=== PATIENT | male | born 1950 | race Caucasian/White ===

== ENCOUNTER 2017-06-07 12:54 | Outpatient (RCR) | payer MEDICARE, OTHER ==
[~2017-06-07 12:54] MED LIST: ASP325 PO; ATOM80CA3 PO; AZIT-1 PO; CHOL10005 PO; CLON-303 *; CODE118S5 PO; COLC1TAB5 PO; CYAN1000 IM; DIAZ-308 PO; DONE10TA PO; DOXA8TAB11 PO; DOXY-179 PO; DULO60CA56 PO; EZE10 PO; EZET10TA41 PO; FLUO40CA70 PO; GAB300 PO; GABA-1 PO; GOLYTE PO; HYDR-3377 PO; HYDR-385 PO; HYDR1TAB PO; LOR5/325 PO; LOS50 PO; LOSA50TA72 PO; MELA10CA PO; MEMA10TA19 PO; METF-411 PO; NEBI2.5T5 PO; ORP100 PO; PRAV40TA78 PO; PREVISION PO; TADA5TAB7 PO; TAMS0.4C25 PO; TEST200V2 IM; TESTOSTERONE; TIZ4 PO; TRAZ150T61 PO; TRIA15OI20 TP; VEN75 PO; [UNRECOGNIZED DRUG - CODE] GT; [UNRECOGNIZED DRUG - OTHER] PO; oxygen
[2017-06-07 13:06] VITALS: BP 133/70
--- NOTE | 2017-06-07 14:42 | ONC Progress Note - NP.Halsey ---
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 Patient reports that last week he was experiencing increased fatigue, following asleep during the day and generally not feeling well. He went in on 05/31/2017 and had a CBC drawn. His hemoglobin was 53.1. Patient was phlebotomized 500 mL of RBCs. Today patient reports that his symptoms have resolved and he is back to having energy and BN active. He continues to have pain in the back which is long-standing. He occasionally has injections and does have hydrocodone that he takes as needed. He denies any headaches, shortness of breath or chest discomfort today. Patient follows with his primary care provider closely. He recently had a colonoscopy and was found to have 4 polyps. He will repeat a colonoscopy in 3 years. PSA was drawn and is 0.6. Patient is up-to-date on his vaccinations and had his flu vaccination. No concerns today. Problem List (1) Erythrocytosis Oncology History The patient is a 65-year-old male who was initially diagnosed with what looks like polycythemia 16 years ago. He was maintained on phlebotomies approximately every three months until he had a phlebotomy nearly on a weekly basis. The patient has erythropoietin level high at 100. 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 Patient was recently phlebotomized. Patient become symptomatic when his hematocrit is above 50%. Medical History Family History: Diabetes mellitus (DM) Grandmother FH: blood disorder Siblings X1 FH: dementia MOTHER FH: leukemia FATHER FH: macular degeneration MOTHER Psychosocial History Smoking History: No (cigars 2-3 qday x 10 years quit ~2006) Smoking Status: Former Smoker Medications and Allergies Reported Medications [vitamin Eomega] No Conflict Check, 2 TAB PO BID 03/23/17 Testosterone Enanthate (TESTOSTERONE ENANTHATE) 200 Mg/1 Ml Vial, 200 MG IM Q2WK , VIAL 03/23/17 Cholecalciferol (Vitamin D3) (VITAMIN D3) 1,000 Unit Tablet, 1 TAB PO QDAY, TAB 02/28/17 Melatonin (MELATONIN) 10 Mg Capsule, 2 TAB PO QHS, CAPSULE 02/28/17 [Prevision] No Conflict Check, 2 TAB PO QDAY 02/28/17 Hydrocodone Bit/Acetaminophen (HYDROCODON-ACETAMINOPHEN 5-325) 1 Each Tablet, 1 EACH PO TID Y for PAIN, TAB 02/28/17 Losartan Potassium (LOSARTAN POTASSIUM) 50 Mg Tablet, 1 TAB PO QDAY 02/28/17 Metformin Hcl (METFORMIN HCL) 500 Mg Tablet, 1 TAB PO QDAY, TAB 02/28/17 Diazepam (DIAZEPAM) 5 Mg Tablet, 1 TAB PO QID, #15 TAB 02/28/17 Pravastatin Sodium (PRAVASTATIN SODIUM) 40 Mg Tablet, 1 TAB PO QHS 02/28/17 Doxazosin Mesylate (DOXAZOSIN MESYLATE) 8 Mg Tablet, 8 MG PO QHS 12/07/16 Triamcinolone Acetonide 0.1% Oint 15 Gm Tube (TRIAMCINOLONE ACETONIDE 0.1% 15 GM TUBE) 15 Gm Oint...g., 15 GM TP 04/30/14 Colchicine/Probenecid (PROBENECID-COLCHICINE TABS) 1 Each Tablet, 1 TAB PO BID 04/30/14 Cyanocobalamin (Vitamin B-12) (CYANOCOBALAMIN INJECTION) 1,000 Mcg/1 Ml Vial, 1000 MCG IM Month, VIAL 04/30/14 Duloxetine Hcl (CYMBALTA) 60 Mg Capsule.dr, 1 TAB PO BID, #10 CAP TAKE 1 CAPSULE BY MOUTH TWICE A DAY 04/30/14 Orphenadrine Citrate (Orphenadrine Citrate) 100 Mg Tablet.sa, 100 MG PO BID 01/09/12 Gabapentin (Neurontin) 300 Mg Cap, 1200 MG PO TID 300mg X3 IN AM 300mg X3 IN AFTERNOON 300mg X4 IN PM 01/09/12 Trazodone Hcl (Trazodone Hcl) 150 Mg Tablet, 100 MG PO QHS, 0 Refills 2-3 TABS AT NIGHT 03/01/09 Allergies: Coded Allergies: oxycodone (Verified Adverse Reaction, Intermediate, DISORIENTATION, CONFUSION, , 06/30/13) Uncoded Allergies: RELAFEN (Allergy, Intermediate, SKIN IRRITATION AND PAIN, 03/01/09) Review of System/Physical Exam Review of Systems All Systems Reviewed/Normal: Yes, Except as Noted Respiratory: Positive for Shortness of Breath Hematologic: Positive for Fatigue Musculoskeletal: Positive for Muscle Pain, Positive for Bone Pain Physical Exam Vital Signs Temperature: 96.5 Pulse: 69 BP Systolic: 133 BP Diastolic: 70 Respiratory Rate: 16 O2 SAT: 90 O2 Delivery: Room Air Height (inches) 71.00 Weight lb: 234 Weight oz: 5.0 Weight Kg (Jarret): 108.10 Pain: 6 ECOG Score: 0 General: Stable, Well Developed, Well Nourished, Not In Acute Distress HEENT: No Trauma, No Conjunctivitis Neck: Supple Lungs: Clear to Auscultation Heart: Regular Rate, Regular Rhythm, No Gallops Abdomen: Soft and Nontender, No Hepatosplenomegaly, Other (I also found are active) Extremities: No Cyanosis, No Clubbing, No Edema Psychiatric: Mood appears normal, Affect appears normal Skin: No Skin Rashes, No Bruising, No Purpura Diagnostic Studies Diagnostic Studies Laboratory Labs drawn at [place] at on 05/31/2017 show white cell count of 2800, hemoglobin is 16.1, hematocrit of 53.1, and a platelet count of 163,000. Patient was phlebotomized 500 mL of red blood cells. PSA was 0.6. Chemistry panel was essentially unremarkable with exception of a glucose of 107, triglycerides of 155 and HDL cholesterol of 33. Laboratory Tests 12/16/15 00:00 Laboratory Tests 12/16/15 00:00: Hematocrit 15.4, Hemoglobin 49.1, Platelet Count 120, White Blood Count 2.9 Assessment and Plan Assessment & Plan 1. Secondary erythrocytosis. Current hematocrit was 53.1 and patient was symptomatic with fatigue and sleepiness and generalized not feeling well area patient was phlebotomized and symptoms have resolved. He continues to use testosterone shots. PSA was 0.6. He will return for CBC in 2 months or sooner if symptomatic. Patient will be phlebotomized 500 ml of blood if his hematocrit is greater than >50%. Previously his cutoff level was greater than 55% but patient reports that he is always symptomatic above 50%. He will return to the clinic for follow-up in 3 months with a CBC prior. 2. Mild leukopenia at 2800. This is chronic and stable. I will continue to monitor. If there is any change, I will proceed with further investigation. 3. Depression, on treatment. 4. Hypertension, on treatment. 5. Sleep apnea. 6. Degenerative joint disease. 7. Recent colonoscopy indicated for polyps. Patient will have repeat colonoscopy in 3 years PLAN 1. There is no indication for intervention today. Patient was phlebotomized last week for hematocrit of 53.1. 2. Check CBC every 2 months. Patient has labs drawn at [facility]. 3. Consider phlebotomy if hematocrit >50% 4. Patient will return for follow-up in 3 months with CBC 5. The patient is to contact us for any new concerns 6. Follow with primary as scheduled I personally spent a total of 20 minutes. Of that 20 minutes was counseling/ coordination of patient's care. See my note above for details. Copies to: CAMRYN DÍAZ MD, NANCY J POULTRY PINNER-BC, ONC Jun 07, 2017 14:42
== END 2017-09-04 ==
LOC: ONC 12:54
PROVIDERS: ATTEND Internal Medicine Hematology
DX: D75.1 Secondary polycythemia (principal); D72.819 Decreased white blood cell count, unspecified; I10 Essential (primary) hypertension; G47.30 Sleep apnea, unspecified; Z79.899 Other long term (current) drug therapy; Z87.891 Personal history of nicotine dependence
CPT/HCPCS: 99212

== ENCOUNTER 2017-09-06 13:30 | Outpatient (RCR) | payer MEDICARE, OTHER ==
[2017-09-06 13:55] VITALS: BP 141/77
--- NOTE | 2017-09-06 19:16 | ONCOLOGY FOLLOW UP NOTE ---
EVENT DATE: September 06, 2017 DIAGNOSIS 1. Secondary erythrocytosis with negative JAK2 mutation analysis and high erythropoietin level 2. Sleep apnea, on continuous passive airway pressure (CPAP) 3. Depression 4. Hypertension 5. Hypercholesterolemia 6. Degenerative joint disease CHIEF COMPLAINT The patient is here today for followup of his secondary erythrocytosis. HEMATOLOGY HISTORY The patient is a 66-year-old male who was initially diagnosed with what looks like polycythemia 16 years ago. He was maintained on phlebotomies approximately every three months until he had a phlebotomy nearly on a weekly basis. The patient has erythropoietin level high at 100. 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 The patient had a CBC on July 29, 2015 which showed white count 3.8 , hemoglobin 11.9, hematocrit 39.4, MCV 74 and platelets 179,000. Serum ferritin was low at 15. HISTORY OF PRESENT ILLNESS The patient is here today for followup of his secondary erythrocytosis. He is complaining of cough with expectoration. He has constipation. He as pain due to arthritis in the legs and back. He has neuropathy in his feet and occasional headache. He is weak, tired and fatigued. PAST MEDICAL HISTORY 1. Tremors. 2. Eustachian tube dysfunction on the left side 3. Bronchitis 4. History of otitis media 5. Frontal sinusitis 6. Tinnitus of the left ear 7. Nodular prostate 8. Depression 9. Hypogonadism 10. Hypercholesterolemia 11. Secondary polycythemia 12. Dementia 13. Neuropathy 14. Sleep apnea, on continuous passive airway pressure (CPAP) 15. Degenerative joint disease 16. Gout 17. Hypertension PAST SURGICAL HISTORY 1. Tonsillectomy 2. Pilonidal sinus resection 3. Two right knee surgeries in 1978 4. Cholecystectomy in 2002 5. Back fusion in 1994 6. Right shoulder rotator cuff tear in 1991 7. Left hip replacement in 2003 8. Back stimulator 2006 9. Right knee replacement 10. Hernia repair 2004 11. Right eye macula repair in 2012 12. Right hip replacement on June 20, 2015 SOCIAL HISTORY The patient is . He has two daughters. 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 He was exposed to asbestos and acids in the past. He quit cigars in 2007. Prior to that, he smoked about three cigars daily for 10 years. He denies any abuse of alcohol or drugs. FAMILY HISTORY Father of leukemia or myelodysplastic syndrome. MEDICATIONS 1. Gabapentin 1200 mg three times daily. 2. Probenecid daily. 3. Cyanocobalamin or vitamin B12 at 1000 mg injection monthly. 4. Duloxetine or Cymbalta 60 mg twice daily. 5. Gabapentin 300 mg twice daily. 6. Lamictal 200 mg daily. 7. Orphenadrine citrate 100 mg twice daily. 8. Cialis 5 mg p.r.n. 9. Flomax 0.4 mg daily. 10. Trazodone 150 mg daily. 11. Triamcinolone acetate cream p.r.n. 12. Testosterone 200 mg per meal injection q.2 weeks. ALLERGIES 1. OXYCODONE, WHICH CAUSES HIM TO BLACK OUT. 2. RELAFEN, WHICH CAUSES SKIN BLEEDING AND SCARRING. REVIEW OF SYSTEMS CONSTITUTIONAL: No appetite or weight change. No fever, chills or sweating. No recent infection. HEENT: Ears: He has tinnitus. Nose: No nasal discharge or epistaxis. Throat: No sore throat or mouth ulcers. Eyes: No diplopia or visual changes. RESPIRATORY: Patient has cough with expectoration. CARDIOVASCULAR: No chest pain, orthopnea, or paroxysmal nocturnal dyspnea (PND) . No edema. No palpitations. GASTROINTESTINAL: No nausea or vomiting. No diarrhea. He has constipation. No heartburn or swallowing difficulties. No abdominal pain. No jaundice. No hematemesis, melena or rectal bleeding. GENITOURINARY: No hematuria or dysuria. MUSCULOSKELETAL: He has pain in the legs and back. NEUROLOGICAL: He has tingling and numbness in the feet and occasional headache. HEMATOLOGIC/LYMPHATIC: He is weak, tired, and fatigued. SKIN: No skin rash or lumps. PSYCHIATRIC: No anxiety or depression. PHYSICAL EXAMINATION GENERAL: Looks stable. Well-developed, well-nourished, and in no acute distress. VITAL SIGNS: Blood pressure 141/77, pulse 84 per minute, respirations 16 per minute, temperature 97.3, pulse oximetry 90% on room air. HEENT: Head: Atraumatic. No sinus tenderness to palpation. Eyes: No icterus or conjunctivitis. Mouth and throat: No oral thrush or mucositis. NECK: Supple. No cervical or supraclavicular lymphadenopathy. LUNGS: Clear to auscultation and percussion bilaterally. HEART: Regular rate and rhythm. No gallops, murmurs, clicks or rubs. ABDOMEN: Soft and lax. No tenderness. No hepatosplenomegaly. No masses. EXTREMITIES: No cyanosis, clubbing or edema. LYMPHATICS: No peripheral lymphadenopathy. NEUROLOGICAL: Conscious, alert and oriented times three. No focal motor or sensory deficits. PSYCHIATRIC: Mood and affect appear normal. SKIN: No skin rash, bruise or purpuric eruption. DIAGNOSTIC DATA CBC showed a white count of 3.6, hemoglobin 13.4, hematocrit 44.7 and platelets 171,000. ASSESSMENT 1. Secondary erythrocytosis. Current hematocrit is 44.7%. There is no indication of phlebotomy. Patient continues to use testosterone shots. I am planning to continue followup. I will see him again in four months with CBC at that time. I will consider phlebotomy if hematocrit is above 55%, and sometimes 50% if the patient is symptomatic from that. 2. Mild leukopenia. Current white count is better at 3600 and ANC is 2.2. We will continue to monitor. 3. Depression, on treatment. 4. Hypertension, on treatment. 5. Sleep apnea. 6. Degenerative joint disease. PLAN 1. Continue followup. 2. Patient to return in four months with CBC. 3. Consider phlebotomy if the hematocrit is above 55% or if 50% and the patient is symptomatic from that. 4. Patient is to contact us for any new concerns or complaints. COURTNEY
== END 2017-09-19 13:59 | disposition home or self-care (01) ==
LOC: ONC 13:30
PROVIDERS: ATTEND Internal Medicine Hematology
DX: D75.1 Secondary polycythemia (principal); D72.819 Decreased white blood cell count, unspecified; I10 Essential (primary) hypertension; G47.30 Sleep apnea, unspecified; Z79.899 Other long term (current) drug therapy; Z87.891 Personal history of nicotine dependence; M19.90 Unspecified osteoarthritis, unspecified site; R05 Cough; K59.00 Constipation, unspecified; R53.1 Weakness; R53.83 Other fatigue
CPT/HCPCS: 99212

== ENCOUNTER → 2017-11-14 | Outpatient (CLI) | payer MEDICARE, OTHER ==
--- NOTE | 2017-11-14 10:37 | RADIOLOGY IMAGING REPORT ---
FACILITY: [facility] PATIENT NAME: Noe Hauser : 1950 MR: [id number] V: [id number] EXAM DATE: ORDERING PHYSICIAN: CAMRYN DÍAZ TECHNOLOGIST: Location: [facility] Patient: Noe Hauser : 1950 Visit/Account:[id number] Date of Sevice: 11/14/2017 CAROTID HISTORY: Retinal artery occlusion COMPARISON: None. FINDINGS: Grayscale, duplex and color Doppler interrogation of the extracranial carotid and vertebral arteries was performed bilateral. On the right, peak systolic velocities within the common and internal carotid arteries are 110 and 70 cm/sec respectively. A small amount of plaque is identified at the right carotid bulb. Antegrade f low within the common, internal and external carotid arteries as well as vertebral artery. ICA/CCA ra narcisa 0.7. On the left, peak systolic velocities within the common and internal carotid arteries are 132 and 81 cm/sec respectively. Smaller plaques identified the left carotid bulb. Antegrade flow within the co mmon, internal and external carotid arteries as well as vertebral artery. ICA/CCA ratio 0.6. IMPRESSION: Small amount of plaque identified the carotid bulbs although no hemodynamically significant lesions i dentified by velocity criteria Velocity criteria are extrapolated from diameter data as defined by the Society of Radiologists in Ul trasound Consensus Conference Radiology 2003; 229;340-346 Report Dictated By: Bindu Cowart MD at 11/14/2017 10:32 AM Report E-Signed By: Bindu Cowart MD at 11/14/2017 10:34 AM WSN:[email or web address]
== END ==
LOC: US 02:41
PROVIDERS: ATTEND Family Medicine
DX: I65.23 Occlusion and stenosis of bilateral carotid arteries (principal); I51.7 Cardiomegaly
CPT/HCPCS: 93306; 93880

== ENCOUNTER 2018-01-10 10:00 | Outpatient (RCR) | payer MEDICARE, OTHER ==
[~2018-01-10 10:00] MED LIST changes: -LOSA50TA72 PO; +LOSA50TA74 PO; -METF-411 PO; +METF-450 PO
[2018-01-10 10:06] VITALS: BP 132/71
[2018-01-10] MEDS ORDERED: ASPI-1471 PO (10:09)
--- NOTE | 2018-01-10 16:55 | ONCOLOGY FOLLOW UP NOTE ---
EVENT DATE: January 10, 2018 DIAGNOSES 1. Secondary erythrocytosis with negative JAK2 mutation analysis and high erythropoietin level 2. Sleep apnea, on continuous passive airway pressure (CPAP) 3. Depression 4. Hypertension 5. Hypercholesterolemia 6. Degenerative joint disease CHIEF COMPLAINT The patient is here today for followup of his secondary erythrocytosis. HEMATOLOGY HISTORY The patient is a 67-year-old male who was initially diagnosed with what looks like polycythemia 16 years ago. He was maintained on phlebotomies approximately every three months until he had a phlebotomy nearly on a weekly basis. The patient has erythropoietin level high at 100. 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 The patient had a CBC on July 29, 2015 which showed white count 3.8, hemoglobin 11.9, hematocrit 39.4, MCV 74 and platelets 179,000. Serum ferritin was low at 15. HISTORY OF PRESENT ILLNESS The patient is here today for followup of his secondary erythrocytosis. He is complaining of back pain and right ankle pain. He has also tingling and numbness in his hands occasionally. He is weak, tired and fatigued. PAST MEDICAL HISTORY 1. Tremors. 2. Eustachian tube dysfunction on the left side 3. Bronchitis 4. History of otitis media 5. Frontal sinusitis 6. Tinnitus of the left ear 7. Nodular prostate 8. Depression 9. Hypogonadism 10. Hypercholesterolemia 11. Secondary polycythemia 12. Dementia 13. Neuropathy 14. Sleep apnea, on continuous passive airway pressure (CPAP) 15. Degenerative joint disease 16. Gout 17. Hypertension PAST SURGICAL HISTORY 1. Tonsillectomy 2. Pilonidal sinus resection 3. Two right knee surgeries in 1978 4. Cholecystectomy in 2002 5. Back fusion in 1994 6. Right shoulder rotator cuff tear in 1991 7. Left hip replacement in 2003 8. Back stimulator 2006 9. Right knee replacement 10. Hernia repair 2004 11. Right eye macula repair in 2012 12. Right hip replacement on June 20, 2015 SOCIAL HISTORY The patient is . He has two daughters. 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 He was exposed to asbestos and acids in the past. He quit cigars in 2007. Prior to that, he smoked about three cigars daily for 10 years. He denies any abuse of alcohol or drugs. FAMILY HISTORY Father of leukemia or myelodysplastic syndrome. MEDICATIONS 1. Gabapentin 1200 mg three times daily. 2. Probenecid daily. 3. Cyanocobalamin or vitamin B12 at 1000 mg injection monthly. 4. Duloxetine or Cymbalta 60 mg twice daily. 5. Gabapentin 300 mg twice daily. 6. Lamictal 200 mg daily. 7. Orphenadrine citrate 100 mg twice daily. 8. Cialis 5 mg p.r.n. 9. Flomax 0.4 mg daily. 10. Trazodone 150 mg daily. 11. Triamcinolone acetate cream p.r.n. 12. Testosterone 200 mg per meal injection q.2 weeks. ALLERGIES 1. OXYCODONE, which causes him to pass out. 2. RELAFEN, which causes skin bleeding and scarring. REVIEW OF SYSTEMS CONSTITUTIONAL: No appetite or weight change. No fever, chills or sweating. No recent infection. HEENT: Ears: No tinnitus or hearing problem. Nose: No nasal discharge or epistaxis. Throat: No sore throat or mouth ulcers. Eyes: No diplopia or visual changes. RESPIRATORY: No shortness of breath. No cough, expectoration or hemoptysis. CARDIOVASCULAR: No chest pain, orthopnea, or paroxysmal nocturnal dyspnea (PND). No edema. No palpitations. GASTROINTESTINAL: No nausea or vomiting. No diarrhea. He has constipation. No heartburn or swallowing difficulties. No abdominal pain. No jaundice. No hematemesis, melena or rectal bleeding. GENITOURINARY: No hematuria or dysuria. MUSCULOSKELETAL: Patient has back pain and right ankle pain which are chronic. NEUROLOGICAL: He has tingling and numbness in the hands occasionally. HEMATOLOGIC/LYMPHATIC: He is weak, tired, and fatigued. SKIN: No skin rash or lumps. PSYCHIATRIC: No anxiety or depression. PHYSICAL EXAMINATION GENERAL: Looks stable. Well-developed, well-nourished, and in no acute distress. VITAL SIGNS: Blood pressure 132/71, pulse 83 per minute, respirations 16 per minute, temperature 96.6, pulse oximetry 91% on room air. HEENT: Head: Atraumatic. No sinus tenderness to palpation. Eyes: No icterus or conjunctivitis. Mouth and Throat: No oral thrush or mucositis. NECK: Supple. No cervical or supraclavicular lymphadenopathy. LUNGS: Clear to auscultation and percussion bilaterally. HEART: Regular rate and rhythm. No gallops, murmurs, clicks or rubs. ABDOMEN: Soft and lax. No tenderness. No hepatosplenomegaly. No masses. EXTREMITIES: No cyanosis, clubbing or edema. LYMPHATICS: No peripheral lymphadenopathy. NEUROLOGICAL: Conscious, alert and oriented times three. No focal motor or sensory deficits. PSYCHIATRIC: Mood and affect appear normal. SKIN: No skin rash, bruise or purpuric eruption. DIAGNOSTIC DATA CBC showed a white count of 2.9, hemoglobin 15.4, hematocrit 49.1 and platelets 120,000. ASSESSMENT 1. Secondary erythrocytosis with current hematocrit 49.1%. There is no indication of phlebotomy at this time. Patient continues to use testosterone shots. I am planning to phlebotomize 500 mL of blood if his hematocrit is above 50%, as the patient is symptomatic when the count is above that. I will see him in six months with CBC, but I will repeat CBC every two months and I will proceed with phlebotomy whenever the hematocrit is above 50%. 2. Mild leukopenia. His current white count is 2.6, ANC is 1.5. We will continue to monitor. 3. Depression, on treatment. 4. Hypertension, on treatment. 5. Sleep apnea. 6. Degenerative joint disease. PLAN 1. Continue followup. 2. Patient to return in six months with CBC. 3. Check CBC every two months. 4. Phlebotomize 500 mL of blood if hematocrit is above 50%. 5. Patient is to contact us for any new concerns or complaints. COURTNEY
== END 2018-03-20 13:27 | disposition home or self-care (01) ==
LOC: ONC 10:00
PROVIDERS: ATTEND Internal Medicine Hematology
DX: D75.1 Secondary polycythemia (principal); D72.819 Decreased white blood cell count, unspecified; I10 Essential (primary) hypertension; F32.9 Major depressive disorder, single episode, unspecified; G47.30 Sleep apnea, unspecified; M19.90 Unspecified osteoarthritis, unspecified site; R53.1 Weakness; R53.83 Other fatigue; Z79.899 Other long term (current) drug therapy
CPT/HCPCS: 99212

== ENCOUNTER → 2018-01-24 | Outpatient (CLI) | payer MEDICARE, OTHER ==
[~2018-01-24] MED LIST changes: +ASPI-1471 PO
== END ==
LOC: US 00:44
PROVIDERS: ATTEND Internal Medicine Cardiovascular Disease
DX: I51.7 Cardiomegaly (principal)
CPT/HCPCS: 93306

== ENCOUNTER 2018-07-11 11:20 | Outpatient (RCR) | payer MEDICARE, OTHER ==
[~2018-07-11 11:20] MED LIST changes: -LOSA50TA74 PO; +LOSA50TA80 PO
[2018-07-11] MEDS ORDERED: CLON0.3T35 PO (11:35)
--- NOTE | 2018-07-11 12:33 | [facility] ONCOLOGY NOTE ---
EVENT DATE: July 11, 2018 DIAGNOSES 1. Secondary erythrocytosis with negative JAK2 mutation analysis and high erythropoietin level 2. Sleep apnea, on continuous passive airway pressure (CPAP) 3. Depression 4. Hypertension 5. Hypercholesterolemia 6. Degenerative joint disease CHIEF COMPLAINT The patient is here today for followup of his secondary erythrocytosis. HEMATOLOGY HISTORY The patient is a 67-year-old male who was initially diagnosed with what looks like polycythemia 16 years ago. He was maintained on phlebotomies approximately every three months until he had a phlebotomy nearly on a weekly basis. The patient has erythropoietin level high at 100. 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 The patient had a CBC on July 29, 2015 which showed white count 3.8, hemoglobin 11.9, hematocrit 39.4, MCV 74 and platelets 179,000. Serum ferritin was low at 15. HISTORY OF PRESENT ILLNESS The patient is here today for followup of his secondary erythrocytosis. He had a phlebotomy done recently in the last two to three weeks for hematocrit approaching 50%. He is complaining of some nasal discharge. He has cough with expectoration. He has alternating diarrhea and constipation. He has lower back pain, neck pain and pain radiating to his arms. He has also tingling and numbness along the sciatic nerve bilaterally in the hands, forearms and feet. He has also fatigue due to lack of sleep. PAST MEDICAL HISTORY 1. Tremors. 2. Eustachian tube dysfunction on the left side 3. Bronchitis 4. History of otitis media 5. Frontal sinusitis 6. Tinnitus of the left ear 7. Nodular prostate 8. Depression 9. Hypogonadism 10. Hypercholesterolemia 11. Secondary polycythemia 12. Dementia 13. Neuropathy 14. Sleep apnea, on continuous passive airway pressure (CPAP) 15. Degenerative joint disease 16. Gout 17. Hypertension PAST SURGICAL HISTORY 1. Tonsillectomy 2. Pilonidal sinus resection 3. Two right knee surgeries in 1978 4. Cholecystectomy in 2002 5. Back fusion in 1994 6. Right shoulder rotator cuff tear in 1991 7. Left hip replacement in 2003 8. Back stimulator 2006 9. Right knee replacement 10. Hernia repair 2004 11. Right eye macula repair in 2012 12. Right hip replacement on June 20, 2015 SOCIAL HISTORY The patient is . He has two daughters. 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 He was exposed to asbestos and acids in the past. He quit cigars in 2007. Prior to that, he smoked about three cigars daily for 10 years. He denies any abuse of alcohol or drugs. FAMILY HISTORY Father of leukemia or myelodysplastic syndrome. MEDICATIONS 1. Gabapentin 1200 mg three times daily. 2. Probenecid daily. 3. Cyanocobalamin or vitamin B12 at 1000 mg injection monthly. 4. Duloxetine or Cymbalta 60 mg twice daily. 5. Gabapentin 300 mg twice daily. 6. Lamictal 200 mg daily. 7. Orphenadrine citrate 100 mg twice daily. 8. Cialis 5 mg p.r.n. 9. Flomax 0.4 mg daily. 10. Trazodone 150 mg daily. 11. Triamcinolone acetate cream p.r.n. 12. Testosterone 200 mg per meal injection q.2 weeks. ALLERGIES 1. OXYCODONE, which causes him to pass out. 2. RELAFEN, which causes skin bleeding and scarring. REVIEW OF SYSTEMS CONSTITUTIONAL: No appetite or weight change. No fever, chills or sweating. No recent infection. HEENT: Ears: No tinnitus or hearing problem. Nose: He has nasal discharge. Throat: No sore throat or mouth ulcers. Eyes: No diplopia or visual changes. RESPIRATORY: He has cough with expectoration. CARDIOVASCULAR: No chest pain, orthopnea, or paroxysmal nocturnal dyspnea (PND). No edema. No palpitations. GASTROINTESTINAL: He has alternating diarrhea and constipation. GENITOURINARY: No hematuria or dysuria. MUSCULOSKELETAL: He has lower back pain, neck pain and arm pain. NEUROLOGICAL: He has sciatic pain bilaterally. He has also tingling and numbness in his feet, hands and forearms. HEMATOLOGIC/LYMPHATIC: He is weak and tired due to lack of sleep. SKIN: No skin rash or lumps. PSYCHIATRIC: No anxiety or depression. PHYSICAL EXAMINATION GENERAL: Looks stable. Well-developed, well-nourished, and in no acute distress. VITAL SIGNS: Blood pressure 118/71, pulse 76 per minute, respirations 16 per minute, temperature 97.8, pulse oximetry 94% on room air. HEENT: Head: Atraumatic. No sinus tenderness to palpation. Eyes: No icterus or conjunctivitis. Mouth and Throat: No oral thrush or mucositis. NECK: Supple. No cervical or supraclavicular lymphadenopathy. LUNGS: Clear to auscultation and percussion bilaterally. HEART: Regular rate and rhythm. No gallops, murmurs, clicks or rubs. ABDOMEN: Soft and lax. No tenderness. No hepatosplenomegaly. No masses. EXTREMITIES: No cyanosis, clubbing or edema. LYMPHATICS: No peripheral lymphadenopathy. NEUROLOGICAL: Conscious, alert and oriented times three. No focal motor or sensory deficits. PSYCHIATRIC: Mood and affect appear normal. SKIN: No skin rash, bruise or purpuric eruption. DIAGNOSTIC DATA Chem panel totally normal except creatinine 1.3, blood sugar 132. CBC showed white count 3.3, hemoglobin 16, hematocrit 51% and platelet count 163,000. ASSESSMENT 1. Secondary erythrocytosis with current hematocrit 51% and patient received phlebotomy for that. Patient continues to use testosterone shots. My plan is to phlebotomize 500 mL of blood if his hematocrit is above or at 50%. Even if the patient is symptomatic from his erythrocytosis, he will have phlebotomy for that. I will see him in six months but I will repeat his CBC in three months. 2. Mild leukopenia. Current white count is 3.3 and his ANC is 2.1. We will continue to monitor. 3. Depression, on treatment. 4. Hypertension, on treatment. 5. Sleep apnea. 6. Degenerative joint disease. PLAN 1. Continue followup. 2. Patient to return in six months with CBC. 3. Repeat CBC every three months. 4. Phlebotomize 500 mL of blood if hematocrit is at or above 50%. 5. Patient is to contact us for any new concerns or complaints. COURTNEY
== END 2018-08-14 09:30 | disposition home or self-care (01) ==
LOC: ONC 11:20
PROVIDERS: ATTEND Internal Medicine Hematology
DX: D75.1 Secondary polycythemia (principal); D72.819 Decreased white blood cell count, unspecified; I10 Essential (primary) hypertension; F32.9 Major depressive disorder, single episode, unspecified; G47.30 Sleep apnea, unspecified; M19.90 Unspecified osteoarthritis, unspecified site; R53.1 Weakness; R53.83 Other fatigue; Z79.899 Other long term (current) drug therapy
CPT/HCPCS: 99212

== ENCOUNTER → 2018-09-10 | Outpatient (CLI) | payer MEDICARE, OTHER ==
[~2018-09-10] MED LIST changes: +CLON0.3T35 PO
--- NOTE | 2018-09-13 11:47 | RT HOLTER TEST ---
FACILITY: [facility] - [place] PATIENT NAME: ANTONIO MARQUEZ : [id number] MR: [id number] V: [id number] EXAM DATE: ORDERING PHYSICIAN: NIKO PEARSON TECHNOLOGIST: VILLA Hook-up date: 2018-09-10 10:18:00 Duration: 47:59:00 Test Indications: PALPITATIONS Medications: 328403 QRS complexes 50 Ventricular ectopics which represent <1 % of total QRS comp. 19 Supraventricular ectopics which represent <1 % of total QRS comp. * Paced QRS complexes which represent % of total QRS comp. VENTRICULAR ECTOPY 44 Isolated 0 Bigeminal Cycles 3 Couplets 0 Runs 0 Beats in Runs * Beats LONGEST at * BPM at :: -- * Beats FASTEST at * BPM at :: -- SUPRAVENTRICULAR ECTOPY 15 Isolated 2 Couplets 0 Runs 0 Beats in Runs * Beats LONGEST at * BPM at :: -- * Beats FASTEST at * BPM at :: -- HEART RATES 57 MIN at 20:21:27 2018-09-11 79 AVG 115 MAX at 10:20:41 2018-09-11 LONGEST RR 1.456 secs at 21:54:02 2018-09-10 S-T LEVELS Channel 1 -12.800 mm MIN at 10:18:00 2018-09-10 -12.800 mm MAX at 10:18:00 2018-09-10 Channel 2 -12.800 mm MIN at 10:18:00 2018-09-10 -12.800 mm MAX at 10:18:00 2018-09-10 Channel 3 -12.800 mm MIN at 10:18:00 2018-09-10 -12.800 mm MAX at 10:18:00 2018-09-10 Rare supraventricular ectopy with two couplets recorded. No runs. Rare ventricular ectopy with three couplets. No triplets or runs. Borderline first degree AV block. No pauses were recorded. Confirmed by REHAN HUERTA ([id number]) on 09/13/2018 11:46:47 AM Referred By: Overread By: REHAN HUERTA
== END ==
LOC: RESP 01:12
PROVIDERS: ATTEND Physician Assistant
DX: R00.2 Palpitations (principal); R13.10 Dysphagia, unspecified
CPT/HCPCS: 93225; 93226

== ENCOUNTER → 2018-09-13 | Outpatient (CLI) | payer MEDICARE, OTHER ==
[~2018-09-13] MED LIST changes: +BARIUM SULFATE 176 GM BTL PO ONE; +BARIUM SULFATE 340 GM POWD ONE
--- NOTE | 2018-09-13 12:19 | RADIOLOGY IMAGING REPORT ---
FACILITY: [facility] [place] PATIENT NAME: Noe Hauser : 1950 MR: [id number] V: [id number] EXAM DATE: ORDERING PHYSICIAN: NIKO PEARSON TECHNOLOGIST: Location: [facility] - [place] Patient: Noe Hauser : 1950 Visit/Account:[id number] Date of Sevice: 09/13/2018 Esophagram: HISTORY: Dysphagia. "Feels like pills get stuck". COMPARISON: None. FINDINGS: Patient was given effervescent crystals and thick barium to drink followed by the ingestion of thin barium. Patient was also given a barium tablet to ingest. Esophageal mucosa and motility is normal. There is no evidence of mass, web or stricture. There is no evidence of esophagitis. Barium is cleared from the esophagus without difficulty. No significant tertiary contractions noted. Rapid sequence imaging was obtained during swallowing. Swallowing is normal. There is no evidence o f mass, web or stricture in the upper esophagus. There are small osteophytes or joint of the cervica l spine anteriorly but this does not cause significant compression on the esophagus or impede the yimi w of barium. There is no pooling of contrast. There is no aspiration. Patient swallowed a barium t ablet which passed without difficulty. Patient states he could feel it near the suprasternal notch b ut the tablet did not lodge in this area. No gastroesophageal reflux occurred during the examination. There is no evidence of esophagitis. IMPRESSION: 1. Normal cervical and thoracic esophagus. There is no evidence of mass, web or stricture. 2. Barium tablet passes through the esophagus without difficulty although the patient did say he cou ld feel a pill at the suprasternal notch although the tablet passed normally through this area. 3. No gastroesophageal reflux and no evidence of esophagitis. Report Dictated By: Bettie Fenton MD at 09/13/2018 12:06 PM Report E-Signed By: Bettie Fenton MD at 09/13/2018 12:14 PM WSN:[email or web address]
== END ==
LOC: RAD 02:23
PROVIDERS: ATTEND Physician Assistant
DX: R00.2 Palpitations (principal); R13.10 Dysphagia, unspecified
CPT/HCPCS: 74220

== ENCOUNTER → 2018-09-19 | Outpatient (CLI) | payer MEDICARE, OTHER ==
[~2018-09-19] MED LIST changes: -BARIUM SULFATE 176 GM BTL PO ONE; -BARIUM SULFATE 340 GM POWD ONE
[2018-09-19 08:35] LABS: PLATELET COUNT, AUTOMATED 143 K/uL (150-450)
== END ==
LOC: LAB 08:18
PROVIDERS: ATTEND Surgery
DX: G47.30 Sleep apnea, unspecified (principal); E11.9 Type 2 diabetes mellitus without complications
CPT/HCPCS: 36415; 82310; 82374; 82435; 82565; 82947; 83036; 84132; 84295; 84520; 85025

== ENCOUNTER 2018-10-18 00:19 | Day surgery (SDC) | payer MEDICARE, OTHER ==
[~2018-10-18] VITALS: Ht 180.3 cm; Wt 103.9 kg
[2018-10-18] MEDS ORDERED: LIDOCAINE MPF 1% 5 ML VIAL ONE (07:48)
[2018-10-18] MEDS ORDERED: PROPOFOL EMUL(*) 10MG/ML 20 ML 60 ML ONE (07:48)
[2018-10-18 10:25] VITALS: BP 127/69
[2018-10-18] MEDS ORDERED: NORMOSOL R SOLN(*) 1000 ML BAG 1,000 ML IV PRN (10:30)
[2018-10-18] MEDS ORDERED: LIDOCAINE/SOD BICARB 8.4% SYR ID ONE (10:30)
[2018-10-18 12:10] VITALS: BP 132/70
[2018-10-18 12:15] VITALS: BP 129/81
[2018-10-18] MEDS ORDERED: PANT40TA65 PO (12:18)
--- NOTE | 2018-10-18 12:20 | Short(Outpt) Discharge Summary ---
Discharge Summary Reason for Hosp/Final Diag: (1) Dysphagia Hospital Course & Plan: pt presented for egd. he tolerated the procedure well and will be discharged home when criteria met. Departure Discharge to: Home Discharge Instructions Home Meds Active Scripts Pantoprazole Sodium (PANTOPRAZOLE SODIUM) 40 Mg Tablet.dr, 1 TAB PO DAILY, #30 CAP 2 Refills Prov:BRADEN PRADO 10/18/18 Reported Medications Aspirin (ASPIR 81) 81 Mg Tablet.dr, 81 MG PO QDAY, TAB 01/10/18 [vitamin Eomega] No Conflict Check, 2 TAB PO BID 03/23/17 Testosterone Enanthate (TESTOSTERONE ENANTHATE) 200 Mg/1 Ml Vial, 200 MG IM Q2WK, VIAL 03/23/17 Cholecalciferol (Vitamin D3) (VITAMIN D3) 1,000 Unit Tablet, 1 TAB PO QDAY, TAB 02/28/17 [Prevision] No Conflict Check, 2 TAB PO QDAY 02/28/17 Hydrocodone Bit/Acetaminophen (HYDROCODON-ACETAMINOPHEN 5-325) 1 Each Tablet, 1 EACH PO TID PRN for PAIN, TAB 02/28/17 Losartan Potassium (LOSARTAN POTASSIUM) 50 Mg Tablet, 1 TAB PO QDAY 02/28/17 Metformin Hcl (METFORMIN HCL) 500 Mg Tablet, 1 TAB PO QDAY, TAB 02/28/17 Pravastatin Sodium (PRAVASTATIN SODIUM) 40 Mg Tablet, 1 TAB PO QHS 02/28/17 Doxazosin Mesylate (DOXAZOSIN MESYLATE) 8 Mg Tablet, 8 MG PO QHS 12/07/16 Triamcinolone Acetonide 0.1% Oint 15 Gm Tube (TRIAMCINOLONE ACETONIDE 0.1% 15 GM TUBE) 15 Gm Oint...g., 15 GM TP 04/30/14 Colchicine/Probenecid (PROBENECID-COLCHICINE TABS) 1 Each Tablet, 1 TAB PO BID 04/30/14 Cyanocobalamin (Vitamin B-12) (CYANOCOBALAMIN INJECTION) 1,000 Mcg/1 Ml Vial, 1000 MCG IM Month, VIAL 04/30/14 Orphenadrine Citrate (Orphenadrine Citrate) 100 Mg Tablet.sa, 100 MG PO BID 01/09/12 Gabapentin (Neurontin) 300 Mg Cap, 1200 MG PO TID 300mg X3 IN AM 300mg X3 IN AFTERNOON 300mg X4 IN PM 01/09/12 Trazodone Hcl (Trazodone Hcl) 150 Mg Tablet, 100 MG PO QHS, 0 Refills 2-3 TABS AT NIGHT 03/01/09 Discontinued Reported Medications Duloxetine Hcl (CYMBALTA) 60 Mg Capsule.dr, 1 TAB PO BID, #10 CAP TAKE 1 CAPSULE BY MOUTH TWICE A DAY 04/30/14 Diet: Regular Activity: As Tolerated Special Instructions: we will call you in 10 days with results. BRADEN PRADO Oct 18, 2018 12:20
[2018-10-18 12:45] VITALS: BP 129/72
[2018-10-18 12:56] VITALS: BP 116/70
[2018-10-18 12:57] VITALS: BP 123/65
== END 2018-10-18 13:15 | disposition home or self-care (01) ==
LOC: OR 00:19
PROVIDERS: ATTEND Surgery
DX: K29.70 Gastritis, unspecified, without bleeding (principal)
CPT/HCPCS: 36416; 43239; 43249; 82948; 87077; 88305; 88313; 88342; C1726; J2001; J2704